=== PATIENT | male | born 1985 | race American Indian/Alaskan Native ===

== ENCOUNTER 2017-01-23 07:54 | Emergency (ER) | payer MEDICAID ==
--- NOTE | 2017-01-23 10:39 | Emergency Department Report ---
HPI - General Chief Complaint: Seizure Time Seen by Provider: 01/23/17 10:29 - HPI HPI: Room 17 The patient is a 31-year-old male presenting with a chief complaint of seizure. The patient reportedly had a seizure generalized tonic clonic his morning lasting approximately 3 minutes per witnesses. The patient states she's been intermittently compliant with his Dilantin. Patient currently denies any complaints. Patient states his last seizure before today occurred approximately 2-3 months ago. Location: [facility] Duration: 3 minutes Quality: Generalized tonic clonic Severity: Moderate Modifying factors: [see above] Context: [see above] Mode of transportation: [not driving] ED Past Medical Hx - Past Medical History Previous Medical History?: Yes Hx Seizures: Yes - Surgical History Past Surgical History?: No - Family History Family history: no significant - Social History Smoking Status: Current Every Day Smoker (1/3 pack per day) Substance Use Type: None (denies illicit drug use) - Medications Home Medications: Home Medications Medication Instructions Recorded Confirmed Last Taken Type Phenytoin Sodium Extended 300 mg PO QHS #90 capsule 01/23/17 Unknown Rx [Dilantin] ED Review of Systems ROS: Stated complaint: SEIZURE Other details as noted in HPI Comment: All other systems reviewed and negative Constitutional: denies: chills, fever Eyes: denies: eye pain, eye discharge, vision change ENT: denies: ear pain, throat pain Respiratory: denies: cough, shortness of breath, wheezing Cardiovascular: denies: chest pain, palpitations Endocrine: no symptoms reported Gastrointestinal: denies: abdominal pain, nausea, diarrhea Genitourinary: denies: urgency, dysuria Musculoskeletal: denies: back pain, joint swelling, arthralgia Skin: denies: rash, lesions Neurological: denies: headache, weakness, paresthesias Psychiatric: denies: anxiety, depression Hematological/Lymphatic: denies: easy bleeding, easy bruising Physical Exam - Physical Exam Vital Signs: Vital Signs 01/23/17 01/23/17 08:35 08:40 Temperature 98.6 F Pulse Rate 86 Respiratory 18 18 Rate Blood Pressure 120/73 O2 Sat by Pulse 99 100 Oximetry Physical Exam: GENERAL: The patient is well-developed well-nourished male lying on stretcher not appear to be in acute distress. [] HEENT: Normocephalic. Atraumatic. Extraocular motions are intact. Patient has moist mucous membranes. Lower lip abrasion along the inner mucosal NECK: Supple. No meningitic signs are noted. There is no adenopathy noted. CHEST/LUNGS: There is no respiratory distress noted. HEART/CARDIOVASCULAR: Regular. There is no tachycardia. ABDOMEN: Abdomen is soft, nontender. Patient has normal bowel sounds. There is no abdominal distention. SKIN: There is no rash. There is no edema. There is no diaphoresis. NEURO: The patient is awake, alert, and oriented. The patient is cooperative. The patient has normal speech MUSCULOSKELETAL: There is no evidence of acute injury. ED Course Vital Signs 01/23/17 01/23/17 08:35 08:40 Temperature 98.6 F Pulse Rate 86 Respiratory 18 18 Rate Blood Pressure 120/73 O2 Sat by Pulse 99 100 Oximetry ED Medical Decision Making - Differential Diagnosis seizure, subtherapeutic Dilantin Critical care attestation.: If time is entered above; I have spent that time in minutes in the direct care of this critically ill patient, excluding procedure time. ED Disposition Clinical Impression: Seizure Disposition: DC-01 TO HOME OR SELFCARE Is pt being admited?: No Does the pt Need Aspirin: No Condition: Stable Instructions: Epilepsy (ED) Additional Instructions: Return to the emergency department immediately should you develop worsening symptoms, fever, inability to tolerate food or liquid or any other concerns. Prescriptions: Phenytoin Sodium Extended [Dilantin] 300 mg PO QHS #90 capsule Referrals: JEFFREY GARCIA MD [Staff Physician] - [facility] (Dr. Garcia is a neurologist. Please follow-up with him for further evaluation) MIKE SOTO MD [Staff Physician] - 3-5 Days (Dr. Soto is a primary physician. Please follow up with him to be established as a patient) Time of Disposition: 10:43
[2017-01-23] MEDS ORDERED: CEREBYX 1,000 MG.PE in NACL 0.9% 100 ML IV ONE (11:00)
[2017-01-23 12:41] VITALS: BP 119/77
== END 2017-01-23 12:38 | disposition home or self-care (01) ==
LOC: ED 07:54
DX: R53.1 Weakness (principal); F17.200 Nicotine dependence, unspecified, uncomplicated
CPT/HCPCS: 36415; 80185; 96365; 99284; Q2009